=== PATIENT | female | born 1940 | race Caucasian/White ===

== ENCOUNTER 2016-09-25 14:59 | Emergency (ER) | payer OTHER ==
[~2016-09-25 14:59] MED LIST: ACETAMINOPHEN-H1 TA2 PO; AMLODIPINE BESYL5 MG PO; AMOXICILLIN500 MG PO; ARICEPT10 M1 PO; BACTRIM DS 8001 TA1 PO; BENADRYL25 MG PO; BISACODYL LAXATI5 MG PO; CALCIUM 600-D1 TAB PO; CALCIUM500 M1 PO; DAYPRO600 M1 PO; DO NOT PROFILE T1 EA PO; DOK COLACE100 MG PO; DOXYCYCLINE MO100 M1 PO; EXELON4.6 MG/24 T; FLAGYL500 MG PO; IRON325 M1 PO; KEFTAB500 MG PO; KEPPRA250 MG PO; LIPIODOL10 ML PO; MAPAP325 MG PO; MILK OF MA400 MG/5 M SG; MIRALAX POWDER17 G1 PO; MULTI VITAMINS1 TAB PO; OMEPRAZOLE D/R20 MG PO; PREDNICOT20 MG PO; PRINIVIL10 MG PO; PRINIVIL20 MG PO; QUETIAPINE FUMA25 MG PO; SUPRAX400 M2 PO; VANCOCIN1000 MG/25 IV; VIBRAMYCIN100 MG PO; VICODIN 500 MG-1 TAB PO; ZANTAC150 MG PO; ZOFRAN ODT4 MG SL; [UNRECOGNIZED DRUG - OTHER] PO
[2016-09-25] MEDS ORDERED: MOBIC7.5 MG PO (15:07)
[2016-09-25] MEDS ORDERED: TYLENOL325 MG R (15:08)
[2016-09-25] MEDS ORDERED: DULCOLAX10 M1 RC (15:08)
== END 2016-09-25 16:36 | disposition home or self-care (01) ==
LOC: ED 14:59
DX: S00.03XA Contusion of scalp, initial encounter (principal); I12.9 Hypertensive chronic kidney disease with stage 1 through stage 4 chronic kidney disease, or unspecified chronic kidney disease; N18.3 Chronic kidney disease, stage 3 (moderate); F03.90 Unspecified dementia, unspecified severity, without behavioral disturbance, psychotic disturbance, mood disturbance, and anxiety; I50.9 Heart failure, unspecified; K21.9 Gastro-esophageal reflux disease without esophagitis; E78.00 Pure hypercholesterolemia, unspecified; D50.9 Iron deficiency anemia, unspecified; M62.82 Rhabdomyolysis; G40.909 Epilepsy, unspecified, not intractable, without status epilepticus; Z86.73 Personal history of transient ischemic attack (TIA), and cerebral infarction without residual deficits; Z98.890 Other specified postprocedural states; Z98.51 Tubal ligation status; W05.0XXA Fall from non-moving wheelchair, initial encounter; Y93.89 Activity, other specified; Y92.89 Other specified places as the place of occurrence of the external cause; Y99.9 Unspecified external cause status

== ENCOUNTER 2017-04-07 20:47 | Emergency (ER) | payer OTHER ==
[~2017-04-07] VITALS: Ht 160 cm; Wt 45.4 kg
[~2017-04-07 20:47] MED LIST changes: +DULCOLAX10 M1 RC; +MOBIC7.5 MG PO; +TYLENOL325 MG R
[2017-04-07 21:17] LABS: BASO % 0.3 % (0.0-1.0); EOS # 0.3 10*3/uL (0.0-0.4); EOS % 4.1 % (1.0-4.0); HEMATOCRIT 34.7 % (37.0-47.0); HEMOGLOBIN 11.1 g/dl (12.0-16.0); LYMPH # 1.3 10*3/uL (1.3-4.4); LYMPH % 21.3 % (27.0-41.0); MEAN CELL VOLUME 95.6 fl (81.0-99.0); MEAN CORPUSCULAR HGB 30.6 pg (27.0-31.0); MEAN PLATELET VOLUME 11.9 fl (9.6-12.3); MONO # 0.4 10*3/uL (0.1-1.0); NEUT # 4.1 10*3/uL (2.3-7.9); PLATELET COUNT AUTOMATED 167 10*3/uL (130-400); RED BLOOD COUNT 3.63 10*6/uL (4.10-5.10); RED CELL DISTRI WIDTH 13.5 % (0-14.5); WHITE BLOOD COUNT 6.1 10*3/uL (4.8-10.8)
[2017-04-07 21:31] LABS: ACETAMINOPHEN (TYLENOL) 4.8 ug/ml (10-30); ALBUMIN 3.3 gm/dl (3.1-4.5); ALKALINE PHOSPHATASE 81 U/L (45-117); BUN 28 mg/dl (7-24); CHLORIDE 113 mmol/L (98-107); CREATININE 1.65 mg/dL (0.55-1.02); SGOT/AST 12 IU/L (3-35); SGPT/ALT 11 U/L (12-78); SODIUM 144 mmol/L (136-145); TOTAL PROTEIN 7.2 gm/dL (6.4-8.2)
[2017-04-07 21:32] LABS: ETHYL ALCOHOL < 3.0 mg/dl (<3)
[2017-04-07 21:45] LABS: BILIRUBIN NEGATIVE (NEGATIVE); BLOOD 3+ (NEGATIVE); COLOR YELLOW (YELLOW); GLUCOSE NEGATIVE (NEGATIVE); KETONE NEGATIVE (NEGATIVE); LEUKO ESTERASE 2+ (NEGATIVE); NITRITE POSITIVE (NEGATIVE); SPECIFIC GRAVITY 1.025 (1.005-1.030); UROBILINOGEN 0.2 E.U./dl (0.2-1.0)
[2017-04-07 21:46] LABS: CLARITY CLOUDY (CLEAR)
[2017-04-07 21:56] LABS: WBC TNTC wbc/hpf (0-5)
[2017-04-07 22:03] LABS: URINE AMPHETAMINES < 1000 (1000ng/ml); URINE BARBITURATES < 200 (200ng/ml); URINE BENZODIAZEPINES < 200 (200ng/ml); URINE CANNABINOIDS (THC) < 50 (50ng/ml); URINE COCAINE < 300 (300ng/ml); URINE METHADONE < 300 (300ng/ml); URINE OPIATES < 300 (300ng/ml)
[2017-04-07 22:04] LABS: URINE PHENCYCLIDINE < 25 (25ng/ml)
[2017-04-07] MEDS ORDERED: ATIVAN0.5 MG PO (23:54)
[2017-04-07] MEDS ORDERED: FLONASE ALLERG9.9 ML NAS (23:56)
[2017-04-07] MEDS ORDERED: BUSPAR5 MG PO (23:56)
[2017-04-07] MEDS ORDERED: MOM30 M1 PO (23:59)
[2017-04-08] MEDS ORDERED: Haldol Concen2 MG/ML IM
== END 2017-04-07 23:41 | disposition admitted as inpatient to this hospital (09) ==
LOC: ED 20:47
PROVIDERS: Nurse Practitioner Family
DX: F23 Brief psychotic disorder (principal); I13.0 Hypertensive heart and chronic kidney disease with heart failure and stage 1 through stage 4 chronic kidney disease, or unspecified chronic kidney disease; N18.3 Chronic kidney disease, stage 3 (moderate); K21.9 Gastro-esophageal reflux disease without esophagitis; G43.909 Migraine, unspecified, not intractable, without status migrainosus; F03.90 Unspecified dementia, unspecified severity, without behavioral disturbance, psychotic disturbance, mood disturbance, and anxiety; Z86.73 Personal history of transient ischemic attack (TIA), and cerebral infarction without residual deficits; Z79.899 Other long term (current) drug therapy

== ENCOUNTER 2017-04-07 23:45 | Inpatient (IN) | payer OTHER ==
[~2017-04-07] VITALS: Ht 160 cm; Wt 61.2 kg
--- NOTE | ~2017-04-07 | PR ---
[place], [place] PROGRESS NOTE NAME: DANICA MARTIN [facility] #: [id number] UNIT #: [id number] ROOM: 310 DOCTOR: Kirsty GAMA,PEYMAN BIRTHDATE: [birth year] DOS: 04/09/2017 PSYCHIATRIC PROGRESS NOTE SUBJECTIVE: The patient seen and the spoke with the staff. Per staff, the patient was pleasant and cooperative. No overt behavioral problems or issues. She slept 6 hours last night. The patient was in a wheelchair, a dog in her hand. She was not able to communicate at all, but when I called her name, she looked at me and grimaced. She was not in any kind of distress. MENTAL STATUS EXAMINATION: The patient was pleasant and cooperative, not able to do full mental status examination because of poor communication. ASSESSMENT: 1. Major neurocognitive disorder, severe with behavioral disturbances. 2. Alzheimer dementia with behavioral disturbances. 3. Psychosis, not otherwise specified. PLAN: 1. Continue current medication and care. 2. Continue redirection. 3. Peñaloza milieu. PEYMAN GAMA MD CM:NIDHI [id number] Kirsty GAMA 04/09/17 1531 interface
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
--- NOTE | ~2017-04-07 | PR ---
[place], [place] PROGRESS NOTE [id number] #: [id number] ROOM: 310 DOCTOR: MIKE SOSA MD BIRTHDATE: [birth year] DOS: 04/10/2017 CHIEF COMPLAINT: The patient made nonsensical responses to me. SUMMARY OF THE VISIT: The patient was attempted to be interviewed as she reclined in a Tesha chair. She was about ready to start having breakfast with assistance from the aides. Nurses report that she continues to be resistive to care and does strike out when care is given to her. MENTAL STATUS: Her mental status is limited due to her aggressed nature. She seems very confused and bewildered and her responses were nonsensical to me. She did not attempt to strike out at me, but at the same time I was not able to engage her in any meaningful conversation. PLAN: I will change her medication regimen to discontinue the p.r.n. Haldol, discontinue the BuSpar. Routine screening examinations revealed her to have a subtherapeutic vitamin D level at 9.5, so go ahead and augment with vitamin D 50,000 International Units weekly. I will start her on Exelon patch 4.6 mg daily and augment this immediately with Namenda 5 mg a day. My hope is that this will impact positively to either help maintain or improve cognition behavior and ADL maintenance. I will increase her Depakote Sprinkles to 250 mg 3 times a day and utilize a combination of Geodon and Ativan p.r.n. for agitation. We will try to rapidly stabilize her with the ultimate plan to return back to [facility] when stable. MIKE SOAS MD CM:PNTRANS [phone] MIKE SOSA MD 04/10/17 1031 interface
--- NOTE | 2017-04-07 23:48 | NUR ---
/DANICA EVANS a 76 year old F admitted via wheel chair from the EMERGENCY ROOM as a emergency 72 hr. hold admission. Arrived on unit at 2350. ALLERGIES: NKDA. Vital signs are: T:[id number] 9702 ON RA, 59BMP, 146/72 . Pt unable to sign the following forms d/t advanced dementia: Authorization For The Release of Medical Information, Clothing List, Consent to Voluntary Admission and Hospitalization, Consent and Release Forms/Receipt of Rights, Acknowledgement of Advance Directive Information, Behavioral Health Consent Form, and Informed Consent of Medications. Admitted under the services of Dr. LANETTE M.D.,[facility]. A search was conducted and hazardous articles were removed. Client was oriented to the unit. LUIS MANUEL CARVALHO
[2017-04-07] MEDS ORDERED: ATIVAN0.5 MG PO (23:54)
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
[2017-04-07] MEDS ORDERED: BUSPAR5 MG PO (23:56)
[2017-04-07] MEDS ORDERED: FLONASE ALLERG9.9 ML NAS (23:56)
[2017-04-07] MEDS ORDERED: MOM30 M1 PO (23:59)
[2017-04-08] MEDS ORDERED: Haldol Concen2 MG/ML IM
[2017-04-08 00:24] VITALS: BP 146/72
[2017-04-08 00:38] VITALS: BP 146/72
--- NOTE | 2017-04-08 01:29 | NUR ---
CALLED. MEDICAL MANAGEMENT CONSULT TO BE PLACED UNDER . UP ON THE UNIT TO ASSESS PATIENT.
--- NOTE | 2017-04-08 02:43 | NUR ---
CALLED REGARDING PHARMACY'S RECOMMENDATION TO CHANGE THE CIPRO ORDER TO 500MG Q18HRS DUE TO DECREASED RENAL FUNCTION. STATED THAT HE "WILL CHANGE THE ORDER IN THE MORNING." NO FURTHER ORDERS RECEIVED AT THIS TIME.
--- NOTE | 2017-04-08 03:08 | NUR ---
24HR CHART CHECK COMPLETE
--- NOTE | 2017-04-08 06:23 | NUR ---
CALL PLACED TO PT'S GUARDIAN FRANKLYN CELESTIN REGARDING PT'S ADMISSION. RELAYED WHY PT IS ADMITTED TO [facility]. VERBALIZED UNDERSTANDING. GUARDIAN GAVE VERBAL CONSENT TO MAKE MEDICATION CHANGES AND PHOTOGRAPHS, NEED ARISES. WITNESSED BY ADDITIONAL RN.
[2017-04-08 06:31] LABS: BASO % 0.4 % (0.0-1.0); EOS # 0.4 10*3/uL (0.0-0.4); HEMATOCRIT 36.8 % (37.0-47.0); HEMOGLOBIN 11.7 g/dl (12.0-16.0); LYMPH # 1.4 10*3/uL (1.3-4.4); LYMPH % 30.3 % (27.0-41.0); MEAN CELL VOLUME 95.8 fl (81.0-99.0); MEAN CORPUSCULAR HGB 30.5 pg (27.0-31.0); MEAN CORPUSCULAR HGB CONC 31.8 g/dl (33.0-37.0); MEAN PLATELET VOLUME 11.8 fl (9.6-12.3); MONO # 0.4 10*3/uL (0.1-1.0); NEUT # 2.4 10*3/uL (2.3-7.9); NEUT % 52.1 % (47.0-73.0); PLATELET COUNT AUTOMATED 166 10*3/uL (130-400); RED BLOOD COUNT 3.84 10*6/uL (4.10-5.10); RED CELL DISTRI WIDTH 13.6 % (0-14.5); WHITE BLOOD COUNT 4.7 10*3/uL (4.8-10.8)
[2017-04-08 06:52] LABS: ALBUMIN 3.4 gm/dl (3.1-4.5); CREATININE 1.54 mg/dL (0.55-1.02); POTASSIUM 3.8 mmol/L (3.5-5.1); TOTAL PROTEIN 7.6 gm/dL (6.4-8.2)
[2017-04-08 06:58] LABS: THYROID STIM HORMONE (HS) 1.28 uIU/ml (0.358-4.75)
--- NOTE | 2017-04-08 07:02 | NUR ---
PT SLEPT <2HRS WITH FREQUENT INTERRUPTIONS
[2017-04-08 07:36] LABS: VITAMIN D, 25-HYDROXY 9.5 ng/mL (30-100)
[2017-04-08 08:00] VITALS: BP 130/78
--- NOTE | 2017-04-08 11:08 | NUR ---
DR. CHAVEZ ON UNIT TO SEE PATIENT.
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
--- NOTE | 2017-04-08 12:15 | NUR ---
PRN HALDOL EFFECTIVE, PATIENT NO LONGER YELLING OUT AND BEIND DISRUPTIVE IN DINNING ROOM. PATIENT IS RESTING IN VICKY CHAIR WITH EYES CLOSED, NO SIGN OR SYMPTOMS OF DISTRESS.
--- NOTE | 2017-04-08 13:15 | NUR ---
CLINICALS GIVEN TO KEILY AT [facility]. GEORGE - WITH NEXT REVIEW THE .
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
[2017-04-08 19:47] VITALS: BP 138/76
--- NOTE | 2017-04-08 22:35 | NUR ---
24HR CHART CHECKS COMPLETE
--- NOTE | 2017-04-08 23:49 | NUR ---
PT ORIENTED TO NAME ONLY. PT UNABLE TO CONVERSE WITH THIS NURSE. NONSENSICAL SPEECH PERSISTED THROUGHOUT THIS SHIT. LABILE MOOD NOTED WITH OCCASIONAL OUTBURSTS OF ANGER/RESTLESSNESS. NURSE REASURRED PT THAT SHE WAS IN A SAFE ENVIRONMENT, ATTEMPTED TO REORIENT/PRESENT REALITY, AND MADE ATTEMPTS TO MAKE PT COMFORTABLE POSSIBLE. PT UNABLE TO COMPREHEND THE AFOREMENTIONED INTERVENTIONS. NURSE FREQUENTLY REPOSITIONED PATIENT, TOILETING. HYDRATION, AND SNACKS. PT ATE ALL OF NIGHTTIME SNACK. CONTINUE TO MONITOR FOR CHANGES IN BEHAVIOR. REFER TO DEMI FOR ADDITIONAL INFO.
--- NOTE | 2017-04-09 06:18 | NUR ---
PT SLEPT >6HRS WITH FREQUENT INTERRUPTIONS
[2017-04-09 07:52] VITALS: BP 142/73
--- NOTE | 2017-04-09 09:09 | NUR ---
DR. GAMA HERE TO SEE PT AT THIS TIME, UPDATE GIVEN.
--- NOTE | 2017-04-09 09:11 | NUR ---
DR. GAMA MADE AWARE HOME MEDICATIONS NOT ADDRESSED ON MED REC. DR. GAMA STATES TO CONTINUE TO PLACE ATIVAN ON HOLD AND CONTINUE BUSPAR. READ BACK AND VERIFIED. WITNESSED BY 2ND RN NIKKI.
--- NOTE | 2017-04-09 10:53 | NUR ---
DR. CHAVEZ ON UNIT TO SEE PT AT THIS TIME. MADE AWARE HOME MEDICATIONS HAVE NOT BEEN CONTINUED OF THIS AM.
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
--- NOTE | 2017-04-09 17:18 | NUR ---
SHIFT CHART CHECK COMPLETED.
[2017-04-09 20:09] VITALS: BP 102/60
--- NOTE | 2017-04-09 21:02 | NUR ---
PATIENT SITTING UP IN WHEELCHAIR. MEDICATION COMPLAINT. VOICES NO COMPLAINTS OF PAIN OR DISCOMFORT AT THIS TIME
--- NOTE | 2017-04-09 22:05 | NUR ---
PATIENT WITH NO AGGRESSIVE BEHAVIORS AT THIS TIME. PATIENT CALM AND PURPOSEFUL. COOPERATIVE WITH CARE.
--- NOTE | 2017-04-10 06:00 | NUR ---
24 HR chart check completed.
--- NOTE | 2017-04-10 07:30 | NUR ---
Q 15 MINUTE SAFETY CHECKS MAINTAINED. SLEPT >8 HOURS THROUGHOUT SHIFT
[2017-04-10 08:06] VITALS: BP 105/64
--- NOTE | 2017-04-10 08:40 | NUR ---
TREATMETN TEAM WAS HELD WITH THE FOLLOWING: DR. SOSA, TAG METER OPERATOR, RNs, ATs, SWs. DR. SOSA STATED PENDING DISCHARGE FOR MONDAY.
--- NOTE | 2017-04-10 11:03 | NUR ---
ON UNIT TO SEE PATIENT.
--- NOTE | 2017-04-10 11:21 | NUR ---
Music Therapy/Reminisce/Trivia Patient was in attendence for group but would not wake up to participate
--- NOTE | 2017-04-10 12:57 | NUR ---
SPEECH PATHOLOGY Bedside swallow eval. completed as per orders. Patient was confused and unable to follow commands. She needed cues to maintain alertness to participate. She was able to tolerate purees and thin liquids with no cough, residue or wet vocal quality. Recommend a pureed diet and thin liquids. Recommend universal safe swallow strategies such as upright positioning for meals, small bites/sips and feeding slowly. Results and rosario. were shared with patient's nurse who verbalized understanding. Follow up therapy is not warranted at this time. Refer to report in [employer] for further info. Thank you for this referral. JOSE MEHTA MSCCC-BALLROOM DANCE INSTRUCTOR
--- NOTE | 2017-04-10 13:03 | NUR ---
Sent updated info. so that LOUIS at [facility] can update "change in condition" passr form.
--- NOTE | 2017-04-10 13:09 | NUR ---
KIRAN from [facility] reporting that Pt was covered until 04-11 with a review that day.
[2017-04-10 14:20] VITALS: BP 142/84
--- NOTE | 2017-04-10 14:43 | NUR ---
PHYSICAL THERAPY PAtient fatgiued and unable to particpate. Thank you for this referral. Ana Lilia Mejia,PT
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
--- NOTE | 2017-04-10 15:06 | NUR ---
Patient was not able to participate in Occupational Therapy evaluation this date as she was soundlly sleeping and unable to arouse. OTR will attempt at a later date. Estelle Dueñas OTR/l
--- NOTE | 2017-04-10 15:21 | NUR ---
Craft and self-esteem group Patient did not attend group in the afternoon due to sleeping.
--- NOTE | 2017-04-10 16:19 | NUR ---
24 HR chart check completed.
--- NOTE | 2017-04-10 23:25 | NUR ---
PATIENT WITH NO AGGRESSIVE BEHAVIORS. RESTING QUIETLY IN BED AT THIS TIME. PLEASANT AND COOPERATIVE WITH CARE. ISOLATIVE AND WITHDRAWN TO ROOM. SEE [facility] FLOW SHEET FOR SPECIFIC MONITORING. VOICES NO COMPLAINTS OF PAIN OR DISCOMFORT
--- NOTE | 2017-04-11 02:55 | NUR ---
24 HR chart check completed.
--- NOTE | 2017-04-11 06:09 | NUR ---
Q 15 MINUTE SAFETY CHECKS MAINTAINED. SLEPT >6 HOURS THROUGHOUT SHIFT
[2017-04-11 08:11] VITALS: BP 152/70
--- NOTE | 2017-04-11 10:50 | NUR ---
DR. CHAVEZ ON UNIT TO SEE PATIENT.
--- NOTE | 2017-04-11 11:25 | NUR ---
Valeriaa Game Patient was in attendence the first few minutes few minutes of group but began yelling. AC removed patient from room and placed her in the quiet room with them music playing softly,which calmed the patient.
--- NOTE | 2017-04-11 11:33 | NUR ---
PATIENT IS ALERT TO SELF AND HANDS ON CARE WITH CONFUSION. RESPIRATIONS ARE EASY, NON-LABORED ON ROOM AIR. MOOD IS IRRATIBLE AT TIMES AND HOPELESS/HELPLESS. THOUGHT PROCESS IS CONFUSED. NO HALLUCINATIONS, DELUSIONS, SI/HI OR PAIN. PATIENT YELLS OUT AND DISRUPTIVE IN GROUP SESSION. PATIENT REMOVED FROM GROUP, PLACED IN QUIET ROOM FOR CHANGE OF ENVIRONMENT WITH LOW STIMULI, LOW LIGHTING AND SOFT MUSIC, WAS EFFECTIVE. NO HALLUCINATIONS, DELUSION, HI/SI OR PAIN NOTED. POOR MEAL INTAKES WITH FLUIDS ENCOURAGED. PATIENT UP IN GERICHAIR. 1-2 PERSON ASSIST WITH ACTIVITIES OF DAILYL LIVING, 1 PERSON ASSIST WITH MEALS. INCONTINENT OF BOWEL AND BLADDER. COMPLIANT WITH MEDICATIONS WITH EDUCATION PROVIDED. Q 15 MINUTE SAFETY CHECKS. CONTINUE TO MONITOR BEHAVIORS AND REDIRECT NEEDED.
--- NOTE | 2017-04-11 13:20 | NUR ---
REVIEW LEFT ON ABI'S VM. PER ABI-LUCILLE GEORGE THROUGH Monday04/13/17 WITH NR DUE MONDAY.
--- NOTE | 2017-04-11 13:32 | NUR ---
vm from [facility] informing that pt is covered utnil 04/13 with review that day.
--- NOTE | 2017-04-11 13:44 | NUR ---
attempted PT Eval and patient was not in a state to attempt eval. This PT could hear patient yelling and screaming through a closed door as she was being showered and after her shower this PT communicated with Staci MATOS and attending karen and it was decided best to let the patient calm down and to attempt the PT eval later. Upon this PT's departure, patient was still yelling and hitting a baby doll on her jung chair tray. PT eval will be attempted later. July Tuttle, PT
--- NOTE | 2017-04-11 14:35 | NUR ---
LOUIS RECEIVED CALL FROM REHABILITATION COUNSELLOR THAT A CONFIGURATION MANAGEMENT ADMINISTRATOR FROM [facility] - [facility] WAS ON UNIT ASSESSING PT FOR POSSIBLE PLACEMENT. GLENN PALMER RECEIVED REFERRAL FROM [facility]. LOUIS WAS NOT AWARE THAT [facility] WAS LOOKING FOR ANOTHER FACILITY AND DID NOT HAVE PERMISSION TO GIVE OUT INFORMATION ON PT. LOUIS EXPLAINED THIS TO TEETEE. LOUIS CALLED GUARDIAN LAQUITA. AYO STATED THAT SHE DID NOT THINK THAT HER HUSABND WOULD WANT PT TO GO THAT FAR. DARLEEN WAS CALLING FRANKLYN AND HAVING HIM CALL LOUIS. LOUIS RECEIVED FAX NUMBER FROM [facility] IF VERBAL PERMISION IS RECEIVED TO FAX INFORMATION [phone].
--- NOTE | 2017-04-11 14:45 | NUR ---
LOUIS RECEIVED CALL BACK FROM GUARDILILLY ESTES. HE DOES NOT WANT PT TO GO THAT FAR. FRANKLYN PREFERS THAT PT STAY IN THE [place] AREA. FRANKLYN SAID THERE WAS A HEARING ON MONDAY. SHARA PALMER Aleena GIVEN PT A 30 DAY NOTICE AND HE COULD NOT REMEMBER WHEN DAY WAS UP.
--- NOTE | 2017-04-11 15:00 | NUR ---
SW SPOKE WITH CLOSING AGENT AT [facility]. PT WAS GIVEN A 30 DAY NOTICE THAT 03-27-17 DUE TO FINANCIAL. PT HAS 2 GUARDIANS. SON AND DIL ARE GUARDIAN OF PERSON AND TITLE ONE TEACHER LULI GHOSH GUARDIAN OF ESTATE. MIGUELANGEL WILLING TO ACPET PT BACK ON MONDAY AND WILL SPEAK WITH [facility] ABOUT ACCEPTING REFERRAL. PT'S PRIMARY LANGUAGE IS GAMBIAN AND CHINESE WHEN SHE IS MAD. CAN CUSS IN BOTH LANGUAGES. PT SHOVELS FOOD INTO HER MOUTH AND EATS FAST.
--- NOTE | 2017-04-11 15:17 | NUR ---
Patient was screaming in the quiet room at approxamately 1:30-1:45. I talked calmly to patient, who it seems only speaks romansh, covered her with a blanket and took her for a walk. Patient calmed down and was taken into lounge. Blew bubbles for her which she seemed to enjoy. Patient soon fell asleep
--- NOTE | 2017-04-11 15:21 | NUR ---
TERA Patient was in attendence for group this afternoon but did not participate. Patient had been upset and fell asleep
--- NOTE | 2017-04-11 16:16 | NUR ---
Shift chart check completed.
--- NOTE | 2017-04-11 17:40 | NUR ---
SW SCHEDULED TRANSPORATION FOR DISCHARGE WITH [facility] FOR 10-18 AT 10AM.
[2017-04-11 20:07] VITALS: BP 123/90
--- NOTE | 2017-04-11 21:26 | NUR ---
24 HR chart check completed.
--- NOTE | 2017-04-11 21:38 | NUR ---
PT WAS YELLING & SCREAMING THIS EVENING & WOULD ONLY CALM FOR BRIEF PERIODS WITH VERBAL INTERVENTION. CONTINUED TO YELL & SCREAM WHILE HOLDING ON TO HER BABYDOLL. MEDICATED WITH ATIVAN 1 MG PO @ 2005 WHICH HAS BEEN EFFECTIVE & PT HAS CALMED DOWN & IS RESTING QUIETLY IN BED.
--- NOTE | 2017-04-12 06:06 | NUR ---
ATIVAN HAS BEEN EFFECTIVE & PT HAS RESTED IN BED QUIETLY WITH NO MORE YELLING OUT EPISODES. SHE HAS BEEN OBSERVED ON Q 15 MIN CHECKS & HAS SLEPT QUIETLY THROUHGOUT THE SHIFT PAST 0100.
[2017-04-12 07:58] VITALS: BP 135/65
[2017-04-12] MEDS ORDERED: DIVALPROEX SOD125 M1 PO (09:25)
[2017-04-12] MEDS ORDERED: RIVASTIGMINE1 EAC1 T (09:25)
[2017-04-12] MEDS ORDERED: NAMENDA-5 PO (09:25)
[2017-04-12] MEDS ORDERED: Vitamin D PO (09:50)
--- NOTE | 2017-04-12 10:55 | NUR ---
pt left via lifeteam, pleasnt and cooporative, pt left with her discharge instructions, vss, incontrol, had no personal belongings
--- NOTE | 2017-04-12 11:29 | NUR ---
Monica:Nancy Ugalde/Rebecca Patient did not attend group today. Patient was in quiet room calming herself
--- NOTE | 2017-04-12 12:08 | NUR ---
NURSE TO NURSE GIVEN TO SYDNI
--- NOTE | 2017-04-12 13:40 | NUR ---
Pt was discharged to [facility] with [facility] providing transporation. [facility] will work with Guardians to secure new facility. Guardian of Person Albin was notified of Pt's return to [facility].
--- NOTE | 2017-04-12 16:26 | NUR ---
Business Information Manager Note: Mailed envelope to the LADONNA Talamantes and Vivian Conroy for signatures.
== END 2017-04-12 11:00 | disposition home or self-care (01) | DRG 884 ==
LOC: 3N 23:45
PROVIDERS: Psychiatry & Neurology Psychiatry; ADMIT Psychiatry & Neurology Psychiatry
DX: F01.51 Vascular dementia, unspecified severity, with behavioral disturbance (principal); E44.0 Moderate protein-calorie malnutrition; G30.9 Alzheimer's disease, unspecified; I13.0 Hypertensive heart and chronic kidney disease with heart failure and stage 1 through stage 4 chronic kidney disease, or unspecified chronic kidney disease; I50.32 Chronic diastolic (congestive) heart failure; F02.81 Dementia in other diseases classified elsewhere, unspecified severity, with behavioral disturbance; N39.0 Urinary tract infection, site not specified; F23 Brief psychotic disorder; G40.909 Epilepsy, unspecified, not intractable, without status epilepticus; F39 Unspecified mood [affective] disorder; K21.9 Gastro-esophageal reflux disease without esophagitis; N18.3 Chronic kidney disease, stage 3 (moderate); I49.8 Other specified cardiac arrhythmias; D50.9 Iron deficiency anemia, unspecified; E87.8 Other disorders of electrolyte and fluid balance, not elsewhere classified; Z86.73 Personal history of transient ischemic attack (TIA), and cerebral infarction without residual deficits; Z98.51 Tubal ligation status; Z79.899 Other long term (current) drug therapy; Z68.23 Body mass index [BMI] 23.0-23.9, adult

== ENCOUNTER → 2017-04-29 | Outpatient (CLI) | payer OTHER ==
[~2017-04-29] MED LIST changes: +ATIVAN0.5 MG PO; +BUSPAR5 MG PO; +DIVALPROEX SOD125 M1 PO; +FLONASE ALLERG9.9 ML NAS; +Haldol Concen2 MG/ML IM; +MOM30 M1 PO; +NAMENDA-5 PO; +RIVASTIGMINE1 EAC1 T; +Vitamin D PO
[2017-04-29 18:23] LABS: HEMATOCRIT 38.5 % (37.0-47.0); HEMOGLOBIN 12.1 g/dl (12.0-16.0); MEAN CORPUSCULAR HGB 30.2 pg (27.0-31.0); MEAN CORPUSCULAR HGB CONC 31.4 g/dl (33.0-37.0); MEAN PLATELET VOLUME 11.4 fl (9.6-12.3); RED BLOOD COUNT 4.01 10*6/uL (4.10-5.10); RED CELL DISTRI WIDTH 13.5 % (0-14.5); WHITE BLOOD COUNT 3.7 10*3/uL (4.8-10.8)
[2017-04-29 18:38] LABS: ALBUMIN 3.3 gm/dl (3.1-4.5); CREATININE 1.38 mg/dL (0.55-1.02); POTASSIUM 4.2 mmol/L (3.5-5.1); TOTAL PROTEIN 7.7 gm/dL (6.4-8.2)
== END | disposition home or self-care (01) ==
LOC: LAB 17:59
PROVIDERS: Family Medicine
DX: I10 Essential (primary) hypertension (principal); F41.1 Generalized anxiety disorder; F03.90 Unspecified dementia, unspecified severity, without behavioral disturbance, psychotic disturbance, mood disturbance, and anxiety; E55.9 Vitamin D deficiency, unspecified; E74.00 Glycogen storage disease, unspecified; E78.00 Pure hypercholesterolemia, unspecified